=== PATIENT | female | born 2005 | race Hispanic/Latino ===

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

== ENCOUNTER 2023-07-04 18:20 | Emergency (ER) | payer BC, OTHER ==
[~2023-07-04] VITALS: Ht 162.6 cm; Wt 112.5 kg
[~2023-07-04 18:20] MED LIST changes: +HYDROCODON-ACE1 EA11 PO; +ONDANSETRON ODT8 MG PO
[2023-07-04 23:59] VITALS: BP 122/79
== END 2023-07-05 00:01 | disposition home or self-care (01) ==
LOC: ED 18:20
DX: R51.9 Headache, unspecified (principal); D49.7 Neoplasm of unspecified behavior of endocrine glands and other parts of nervous system; Z98.890 Other specified postprocedural states
CPT/HCPCS: 70450; A9270

== ENCOUNTER 2024-01-12 21:54 | Emergency (ER) | payer BC, OTHER ==
[~2024-01-12] VITALS: Ht 162.6 cm; Wt 117.7 kg
--- OUTSIDE RECORDS SUMMARY | 2024-01-12 21:56 | XMS ---
PreManage Notification: MARAL FORBES Security Network Administrator Events No recent Security Events currently on file CRITERIA MET - [facility] CARE PROVIDERS -, Cony- Dentist: Body Builder [facility] PHONE: [phone] JEANETTE ADEN Physician Machine Cementer Current PHONE: Unknown [facility]: [facility] PHONE: [phone] Declan has no Care Guidelines for this patient. E.D. VISIT COUNT (12 MO.) 2 RASHAAD Herrera TOTAL 2 NOTE: Visits indicate total known visits. ED/UCC VISIT TRACKING (12 MO.) 01/12/2024 21:55 RASHAAD Herzog [place] TYPE: Emergency COMPLAINT: - RT ARM NUMBNESS 07/04/2023 18:20 RASHAAD Herzog [place] TYPE: Emergency COMPLAINT: - DIZZINESS DIAGNOSES: - Headache, unspecified - Neoplasm of unspecified behavior of endocrine glands and other parts of nervous system - Other specified postprocedural states INPATIENT VISIT TRACKING (12 MO.) No inpatient visits to display in this time frame [email or web address]
[2024-01-12] MEDS ORDERED: KETOROLAC TROMETHAMINE 30 MG/ML VIAL IV ONE (23:45)
[2024-01-13] LABS: BASOPHILS 0.2 % (0-2); EOSINOPHILS 0.7 % (0-6); HEMATOCRIT 43.7 % (35.0-50.0); HEMOGLOBIN 14.1 g/dL (12.0-18.0); LYMPHOCYTES 23.6 % (24-44); MCH 27.2 (27-36); MCHC 32.2 g/dl (30-36); MCV 84.6 fl (81-99); NEUTROPHILS 67.5 % (39-80); PLATELET COUNT 283 K/uL (140-440); RBC 5.17 M/ul (4.3-5.7); RDW 14.9 (10.5-15.0)
[2024-01-13 00:24] LABS: ALBUMIN 4.2 g/dL (3.4-5.0); ALBUMIN/GLOBULIN RATIO 0.95 (1.1-2.4); BILIRUBIN, TOTAL 0.4 ng/dL (0.2-1.0); BUN/CREATININE RATIO 21.73 (6.0-28.6); CALCIUM 9.6 mg/dL (8.5-10.1); CREATININE, SERUM 0.69 mg/dL (0.55-1.02); PROTEIN, TOTAL 8.6 g/dL (6.4-8.2); TSH, 3RD GENERATION 1.475 uIU/mL (0.516-4.130)
[2024-01-13 00:48] LABS: BILIRUBIN, URINE NEGATIVE (negative); BLOOD/HGB, URINE NEGATIVE (Negative); KETONE, URINE NEGATIVE (Negative); LEUK ESTERASE, URINE NEGATIVE (negative); NITRITE, URINE NEGATIVE (negative)
[2024-01-13 01:16] VITALS: BP 148/92
== END 2024-01-13 01:19 | disposition home or self-care (01) ==
LOC: ED 21:54
PROVIDERS: Internal Medicine
DX: G56.01 Carpal tunnel syndrome, right upper limb (principal); E66.9 Obesity, unspecified; Z68.41 Body mass index [BMI] 40.0-44.9, adult; Z86.03 Personal history of neoplasm of uncertain behavior
CPT/HCPCS: 36415; 80053; 81003; 84443; 85025; 96374; 99284-25; J1885

== ENCOUNTER 2025-04-18 12:47 | Day surgery (SDC) | payer BC, OTHER ==
[~2025-04-18] VITALS: Ht 162.6 cm; Wt 116.0 kg
--- NOTE | ~2025-04-18 | OR ---
[facility] [address] [place] [address] Draft DATE OF OPERATION: 04/18/2025 SURGEON: Sofi Barrett DO PREOPERATIVE DIAGNOSIS: Unexplained epigastric pain. POSTOPERATIVE DIAGNOSES: 1. Unexplained epigastric pain with LA grade C esophagitis with distal ulceration of the GE junction. 2. Gastritis. 3. Duodenitis. PROCEDURE PERFORMED: Esophagogastroduodenoscopy with cold biopsy and random gastric cold biopsy. ANESTHESIA: IV sedation. ESTIMATED BLOOD LOSS: None. DRAINS: None. COMPLICATIONS: None. DESCRIPTION OF PROCEDURE: The patient was brought to the GI lab, placed in supine position. After induction of IV sedation through preanesthetized oropharynx and a bite block, the Olympus video endoscope was then placed through the mouth, directed through the length of esophagus and into the distal esophagus and general x-rays were carried out. At the GE junction, approximately 3 to 4 mm ulceration was noted with some LA grade C esophagitis at the distal aspect of the GE junction. No bleeding was noted. The ulcer was fragile in nature, so the biopsy was not warranted at this time. Scope was then brought back into the stomach and the stomach was insufflated. Exploration was then carried out. Some moderate distal gastritis was noted. Random gastric biopsy was performed with cold biopsy forceps and passed off the field. The scope was then brought back through the pylorus and into the duodenum, some mild duodenitis was noted. No ulcerations were PATIENT NAME: MARAL FORBES HARRISON OPERATIVE REPORT DATE OF : 03 REPORT #: [id number] PHYSICIAN: SOFI BARRETT DO PCP: JEANETTE ADEN REPORT IS CONFIDENTIAL AND NOT TO BE RELEASED WITHOUT AUTHORIZATION [address] [place] [address] Draft appreciated. The scope was brought back into the stomach. No ulcerations, intrinsic or extrinsic masses were noted in the stomach except for the nonspecific gastritis noted in the body of the stomach. The scope was retroflexed upon itself. No evidence of hiatal hernia was noted. No mass effect noted below the GE junction. The scope was placed in neutral position. Stomach was deflated. Scope was then withdrawn. The patient tolerated the procedure well and taken to recovery room in satisfactory condition. DO DEWEY Blake/YONATAN /[id number] Copies: ~ PATIENT NAME: MARAL FORBES OPERATIVE REPORT DATE OF : 03 REPORT #: [id number] PHYSICIAN: SOFI BARRETT DO PCP: JEANETTE ADEN REPORT IS CONFIDENTIAL AND NOT TO BE RELEASED WITHOUT AUTHORIZATION
[~2025-04-18 12:47] MED LIST changes: +IBLOOD GLUCOSE TEST STRIP 1 EA TEST VI PRN; +LACTATED RINGER'S 1,000 ML IV SCH; +LIDOCAINE HCL 1% 5 ML SDV INJ ONE; +OMEPRAZOLE20 MG PO
[2025-04-18 13:13] VITALS: BP 123/84
[2025-04-18] MEDS ORDERED: LIDOCAINE HCL 2% 5 ML SDV ONE (14:28)
[2025-04-18 15:16] VITALS: BP 128/91
--- NOTE | 2025-04-18 16:42 | NUR ---
04/18/25 1642 Eyal,Sunni 1446 PT ARRIVED TO PACU ON 6L VIA NC, O2 SAT 100% O2 DECREASED TO 2L. PT EASILY FALLS BACK TO SLEEP. RESP EVEN AND UNLABORED BUT INCREASED RATE.
--- NOTE | 2025-04-23 10:26 | PATH ---
[facility] [address] [place] [place] [address] Signed THIS IS AN ADDENDUM REPORT SPECIMEN(S): A RANDOM STOMACH SPECIMEN SOURCE: A. RANDOM STOMACH CLINICAL HISTORY: Pre-: Epigastric abdominal pain, GERD. Postop: Distal esophagitis, duodenitis, gastritis. FINAL PATHOLOGIC DIAGNOSIS: Stomach, random biopsy: - Mild chronic gastritis with vascular congestion, negative for active inflammation or intestinal metaplasia. - No H. pylori bacteria are detected by HE stain. See comment. COMMENT: Immunohistochemical stain for H. pylori will be performed on A1 and reported by addendum. AMB MICROSCOPIC EXAMINATION: Histologic sections of all submitted blocks are examined by light microscopy. These findings, together with the gross examination, support the pathologic diagnosis. GROSS DESCRIPTION: The specimen, labeled and designated "priti Rocha stomach biopsy," is received in formalin and consists of one kaplan soft tissue fragment, 0.3 cm. Entirely submitted in (A1). JS (under the direct supervision of a pathologist) The Gross Description was prepared using a voice recognition system. The report was reviewed for accuracy; however, sound-alike word errors, addition and/or deletions may occur. If there is any question about this report, please contact Client Services. ADDITIONAL NOTES: Immunohistochemical and/or in situ hybridization studies if performed in this case included appropriate positive controls that reacted as expected. This test was developed and its performance PATIENT NAME: MARAL ROCHA PATHOLOGY DATE OF : 03 REPORT #: [id number] PHYSICIAN: DAV LUO PCP: JEANETTE ADEN REPORT IS CONFIDENTIAL AND NOT TO BE RELEASED WITHOUT AUTHORIZATION [facility] [address] [place] [place] [address] Signed characteristics determined by [employer] [facility]. It has not been cleared or approved by the U.S. Food and Drug Administration. The FDA has determined that such clearance or approval is not necessary. This test is used for clinical purposes. It should not be regarded as investigational or for research. [facility] is certified under the Clinical Laboratory Improvement Amendments of 1988 (CLIA) as qualified to perform high complexity clinical laboratory testing. PERFORMING LABORATORY: Technical component was performed by [facility], [address] [place] [address] (CLIA# [id number]). Professional interpretation was performed by [email or web address] [facility] [address] [place] [id number] [id number] ADDITIONAL NOTES: Immunohistochemical and/or in situ hybridization studies if performed in this case included appropriate positive controls that reacted as expected. This test was developed and its performance characteristics determined by [facility]. It has not been cleared or approved by the U.S. Food and Drug Administration. The FDA has determined that such clearance or approval is not necessary. This test is used for clinical purposes. It should not be regarded as investigational or for research. [facility] is certified under the Clinical Laboratory Improvement Amendments of 1988 (CLIA) as qualified to perform high complexity clinical laboratory testing. Professional interpretation was performed by [email or web address] [facility] [address] [place] [phone] [id number] REASON FOR ADDENDUM: H. pylori testing by immunohistochemistry on A1 ADDENDUM PATHOLOGIC DIAGNOSIS: Stomach, H. pylori testing by immunohistochemistry - Negative for organisms. AMB Diagnostician: Leyla Waller MD Pathologist Electronically Signed 04/23/2025 PATIENT NAME: MARAL ROCHA PATHOLOGY DATE OF : 03 REPORT #: [id number] PHYSICIAN: DAV LUO PCP: JEANETTE ADEN REPORT IS CONFIDENTIAL AND NOT TO BE RELEASED WITHOUT AUTHORIZATION [address] [address] Signed Copies: ~ PATIENT NAME: MARAL ROCHA PATHOLOGY DATE OF : 03 REPORT #: [id number] PHYSICIAN: DAV LUO PCP: JEANETTE ADEN REPORT IS CONFIDENTIAL AND NOT TO BE RELEASED WITHOUT AUTHORIZATION
== END 2025-04-18 15:29 | disposition home or self-care (01) ==
LOC: OPS 12:47 → DS 14:15 → OPS 15:29
PROVIDERS: ATTEND Surgery
PROC: 0DB68ZX Excision of Stomach, Via Natural or Artificial Opening Endoscopic, Diagnostic (ICD-10-PCS; principal; 2025-04-18 14:15)
DX: K21.00 Gastro-esophageal reflux disease with esophagitis, without bleeding (principal); K29.50 Unspecified chronic gastritis without bleeding; K22.10 Ulcer of esophagus without bleeding; K29.80 Duodenitis without bleeding; E22.1 Hyperprolactinemia; Z79.899 Other long term (current) drug therapy
CPT/HCPCS: 00731; 84703; J2003; J2704; J7121

== ENCOUNTER 2025-07-23 22:24 | Emergency (ER) | payer BC, OTHER ==
[~2025-07-23] VITALS: Ht 162.6 cm; Wt 109.1 kg
[~2025-07-23 22:24] MED LIST changes: -IBLOOD GLUCOSE TEST STRIP 1 EA TEST VI PRN; -LACTATED RINGER'S 1,000 ML IV SCH; -LIDOCAINE HCL 1% 5 ML SDV INJ ONE
[2025-07-23 22:42] LABS: BASOPHILS 0.3 % (0.1-1.2); EOSINOPHILS 0.8 % (0.7-5.8); LYMPHOCYTES 32.3 % (19.3-51.7); MCH 27.5 PG (25.6-32.2); MCHC 32.7 g/dL (32.2-35.5); MCV 84.3 fL (79.4-94.8); MONOCYTES 7.3 % (4.7-12.5); NEUTROPHILS 58.6 % (34.0-71.1); RBC 4.83 M/uL (3.93-5.22)
[2025-07-23] MEDS ORDERED: MORPHINE SULFATE 4 MG/ML VIAL IV ONE (22:45)
[2025-07-23] MEDS ORDERED: SODIUM CHLORIDE 0.9% 1,000 ML IV ONE (22:45)
[2025-07-23 23:17] LABS: ALT (SGPT) 31.0 U/L (14-59); AST (SGOT) 14.0 U/L (15-37); GLOMERULAR FILTRATION RATE,EST 134.0 mL/min (>60); PROTEIN, TOTAL 8.1 g/dL (6.4-8.2); UREA NITROGEN 16.0 mg/dL (7-18)
[2025-07-23] MEDS ORDERED: HYDROmorphone HCL 1 MG/ML SYR IV PRN (23:45)
[2025-07-24] MEDS ORDERED: CYCLOBENZAPRINE10 MG PO ×2 (00:57→01:07)
[2025-07-24] MEDS ORDERED: ONDANSETRON 4 MG HOME.PACK SL ONE (01:00)
[2025-07-24] MEDS ORDERED: CYCLOBENZAPRINE HCL 10 MG HOME.PACK PO ONE (01:00)
[2025-07-24 01:30] VITALS: BP 128/72
== END 2025-07-24 01:30 | disposition home or self-care (01) ==
LOC: ED 22:24
PROVIDERS: Family Medicine
DX: R10.A2 Flank pain, left side (principal)
CPT/HCPCS: 51798; 74176; 80053; 83690; 84703; 85025; 96374; 96375; 99284-25; A9270; J1171; J1790; J2270; J2405; J7030